=== PATIENT | female | born 1970 | race African-American/Black ===

== ENCOUNTER 2019-03-26 15:09 | Emergency (ER) | payer OTHER ==
[~2019-03-26] VITALS: Ht 157.5 cm; Wt 115.5 kg
[2019-03-26] MEDS ORDERED: AMLO10TA80 PO (15:45)
[2019-03-26 22:23] VITALS: BP 143/90
== END 2019-03-26 22:43 | disposition home or self-care (01) ==
LOC: ER 15:09
DX: F10.239 Alcohol dependence with withdrawal, unspecified (principal); Y90.9 Presence of alcohol in blood, level not specified; R00.0 Tachycardia, unspecified; I10 Essential (primary) hypertension
CPT/HCPCS: 99283

== ENCOUNTER 2019-09-09 04:24 | Inpatient (IN) | payer OTHER ==
[~2019-09-09] VITALS: Ht 154.9 cm; Wt 113.4 kg
[~2019-09-09 04:24] MED LIST: AMLO10TA80 PO
[2019-09-09] MEDS ORDERED: SODIUM CHLORIDE 0.9% 1000ML BAG (SEPSIS BOLUS) IV ONE (04:45)
[2019-09-09] MEDS ORDERED: MORPHINE SULFATE 4 MG/ML CPJ (NOT FOR IM USE) IV ONE (04:45)
[2019-09-09] MEDS ORDERED: FAMOTIDINE 20MG/2ML VIAL IV ONE (04:45)
[2019-09-09] MEDS ORDERED: ONDANSETRON HCL 4MG/2ML INJ IV ONE (04:45)
[2019-09-09] MEDS ORDERED: LABETALOL 5MG/ML SYR 20 MG/4 ML SYRINGE IV ONE (04:45)
[2019-09-09 05:06] LABS: HEMATOCRIT. 34.1 % (36.0-48.0); HEMOGLOBIN. 10.9 g/dL (12.0-16.0); MEAN CORPUSCULAR HEMOGLOBIN 23.3 pg (28.0-32.0); MEAN PLATELET VOLUME 8.8 fl (7.4-10.4); PLATELET 270 x1000/uL (130-400); RED BLOOD CELL COUNT 4.67 mill/uL (4.2-5.4); RED CELL DISTRIBUTION WIDTH 25.5 % (11.6-14.6)
[2019-09-09 05:12] LABS: INR 1.1; PROTHROMBIN TIME 11.1 sec (9.6-11.0)
[2019-09-09 05:37] LABS: CLARITY URINE CLOUDY (CLEAR); COLOR URINE RED (YELLOW); KETONES URINE 2+ (NEGATIVE); LEUKOCYTE ESTERASE URINE 2+ (NEGATIVE); NITRITE URINE NEGATIVE (NEGATIVE); OCCULT BLOOD URINE 3+ (NEGATIVE); PROTEIN URINE 2+ (NEGATIVE); SPECIFIC GRAVITY URINE 1.016 (1.005-1.030)
[2019-09-09 05:40] LABS: CHLORIDE 105 mEq/L (98-107)
[2019-09-09 05:45] LABS: ETHANOL BLOOD 91 mg/dL
[2019-09-09 06:01] LABS: *BARBITURATES SCREEN URINE NEGATIVE (NEGATIVE)
[2019-09-09 06:02] LABS: *AMPHETAMINES SCREEN URINE NEGATIVE (NEGATIVE); *BENZODIAZEPINES SCREEN URINE NEGATIVE (NEGATIVE); *COCAINE SCREEN URINE NEGATIVE (NEGATIVE); METHADONE URINE SCREEN NEGATIVE (NEGATIVE); OPIATES URINE SCREEN NEGATIVE (NEGATIVE); PHENCYCLIDINE URINE SCREEN NEGATIVE (NEGATIVE)
[2019-09-09 06:04] LABS: CANNABINOID URINE SCREEN NEGATIVE (NEGATIVE)
[2019-09-09] MEDS ORDERED: LORAZEPAM 1MG TABLET PO ONE (07:00)
[2019-09-09 07:07] LABS: PLATELET ESTIMATE NORMAL
[2019-09-09 08:30] VITALS: BP 168/94
[2019-09-09 08:49] VITALS: BP 168/94
[2019-09-09 09:18] VITALS: BP 168/94
[2019-09-09] MEDS ORDERED: ESCI20TA MT (10:02)
[2019-09-09] MEDS ORDERED: DIPHENHYDRAMINE 50MG/ML VIAL IV PRN (10:30)
[2019-09-09] MEDS ORDERED: ONDANSETRON HCL 4MG/2ML INJ IV PRN (10:30)
[2019-09-09] MEDS ORDERED: LORAZEPAM 2MG/ML CPJ IV PRN (10:30)
[2019-09-09] MEDS ORDERED: ACETAMINOPHEN 325MG TABLET PO PRN ×2 (10:30)
[2019-09-09 12:00] VITALS: BP 163/108
[2019-09-09] MEDS ORDERED: MVI, ADULT NO.1 10 ML, FOLIC ACID 1 MG, THIAMINE HCL 100 MG in SODIUM CHLORIDE 0.9% 1,0... IV NR ×4 (12:00)
[2019-09-09] MEDS ORDERED: POTASSIUM CHLORIDE INJ 40 MEQ in DEXT 5% WATER 250 ML IV NR (12:00)
[2019-09-09] MEDS: SODIUM CHLORIDE 0.9% 1,000 ML IV SCH ×2 (12:18→23:38)
[2019-09-09] MEDS: HYDRALAZINE 20MG/ML VIAL IV PRN (13:31)
[2019-09-09 16:00] VITALS: BP_SYST 148; BP_SYST 183; BP_DIAS 107; BP_DIAS 88
[2019-09-09] MEDS ORDERED: MAGNESIUM 2 G PREMIX 50 ML IV NR (19:00)
[2019-09-09 20:00] VITALS: BP 157/105
[2019-09-09] MEDS: FAMOTIDINE 20MG/2ML VIAL IV SCH (21:20)
[2019-09-09] MEDS: CLONIDINE 0.1MG TABLET PO PRN (21:20)
[2019-09-10] VITALS: BP 147/100
[2019-09-10 04:00] VITALS: BP 128/100
[2019-09-10] MEDS: CLONIDINE 0.1MG TABLET PO PRN ×2 (04:50→12:10)
[2019-09-10 06:59] LABS: CHLORIDE 103 mEq/L (98-107)
[2019-09-10 08:00] VITALS: BP 149/105
[2019-09-10] MEDS: HYDRALAZINE 20MG/ML VIAL IV PRN (09:19)
[2019-09-10] MEDS: FAMOTIDINE 20MG/2ML VIAL IV SCH (09:20)
[2019-09-10 12:00] VITALS: BP 135/104
[2019-09-10 12:08] LABS: BASOPHILS % 0.4 % (0.0-2.0); EOSINOPHILS % 1.2 % (0.0-5.0); HEMATOCRIT. 32.2 % (36.0-48.0); HEMOGLOBIN. 10.1 g/dL (12.0-16.0); LYMPHOCYTES % 22.2 % (20.0-50.0); MEAN CORPUSCULAR HEMOGLOBIN 23.5 pg (28.0-32.0); MEAN CORPUSCULAR VOLUME 74.6 fL (81.0-99.0); MEAN PLATELET VOLUME 8.8 fl (7.4-10.4); MONOCYTES % 5.9 % (2.0-8.0); NEUTROPHILS % 70.3 % (40.0-76.0); PLATELET 94 x1000/uL (130-400); RED BLOOD CELL COUNT 4.32 mill/uL (4.2-5.4); RED CELL DISTRIBUTION WIDTH 25.1 % (11.6-14.6)
[2019-09-10 12:48] LABS: PLATELET ESTIMATE DECREASED
[2019-09-10] MEDS ORDERED: POTASSIUM CHLORIDE 20MEQ TABLET SR PO NR (14:15)
[2019-09-10 16:00] VITALS: BP 133/75
[2019-09-10] MEDS ORDERED: POTASSIUM PHOS,M-BASIC-D-BASIC 20 MMOL in DEXT 5% WATER 243.3333 ML IV NR (16:00)
[2019-09-10] MEDS: OMEPRAZOLE 20MG CAPSULE EXTENDED RELEASE PO SCH ×2 (16:28→20:19)
[2019-09-10] MEDS: AMLODIPINE 10MG TABLET PO SCH (16:28)
[2019-09-10 20:00] VITALS: BP 105/56
[2019-09-11] VITALS: BP 106/70
[2019-09-11 04:00] VITALS: BP 117/77
[2019-09-11] MEDS: OMEPRAZOLE 20MG CAPSULE EXTENDED RELEASE PO SCH (05:47)
[2019-09-11 07:09] LABS: CHLORIDE 109 mEq/L (98-107)
[2019-09-11 07:21] LABS: PHOSPHORUS 2.8 mg/dL (2.5-4.9)
[2019-09-11 08:00] VITALS: BP 121/83
[2019-09-11] MEDS: AMLODIPINE 10MG TABLET PO SCH (08:26)
[2019-09-11] MEDS ORDERED: THIAMINE HCL 100MG TABLET PO NR (09:30)
[2019-09-11] MEDS ORDERED: POTASSIUM CHLORIDE 20MEQ TABLET SR PO NR (09:30)
[2019-09-11] MEDS: CLONIDINE 0.1MG TABLET PO PRN (11:23)
[2019-09-11 12:00] VITALS: BP 148/94
[2019-09-11 12:33] VITALS: BP 148/94
== END 2019-09-11 13:00 | disposition home or self-care (01) | DRG 392 ==
LOC: ER 04:24 → OBSVTOIN 06:31 → 5WST 06:31 → ENRESERV 07:29
PROVIDERS: ADMIT Internal Medicine; ATTEND Internal Medicine
DX: K29.00 Acute gastritis without bleeding (principal); E87.1 Hypo-osmolality and hyponatremia; E83.42 Hypomagnesemia; I10 Essential (primary) hypertension; E87.6 Hypokalemia; R74.0 Nonspecific elevation of levels of transaminase and lactic acid dehydrogenase [LDH]; F41.1 Generalized anxiety disorder; Z85.3 Personal history of malignant neoplasm of breast; Z82.49 Family history of ischemic heart disease and other diseases of the circulatory system; Z79.899 Other long term (current) drug therapy; Z90.11 Acquired absence of right breast and nipple; Z72.89 Other problems related to lifestyle
CPT/HCPCS: 36415; 80048; 80053; 80305; 80320; 81003; 83735; 84100; 85025; 93005; 96365; 99291; J0360; J2060; J2270; J2405; J3411; J3475; J3480; J3490; J7030; J7060; G0480

== ENCOUNTER 2020-06-29 23:38 | Emergency (ER) | payer OTHER ==
[~2020-06-29] VITALS: Ht 167.6 cm; Wt 75.0 kg
[~2020-06-29 23:38] MED LIST changes: +ESCI20TA MT
[2020-06-30] MEDS ORDERED: MORPHINE SULFATE 4 MG/ML CPJ (NOT FOR IM USE) IV STA (00:22)
[2020-06-30] MEDS ORDERED: FAMOTIDINE 20MG/2ML VIAL IV STA (00:22)
[2020-06-30] MEDS ORDERED: ONDANSETRON HCL 4MG/2ML INJ IV STA (00:22)
[2020-06-30] MEDS ORDERED: SODIUM CHLORIDE 0.9% 1,000 ML IV ONE (00:30)
[2020-06-30 02:14] LABS: BASOPHILS % 0.9 % (0.0-2.0); EOSINOPHILS % 0.1 % (0.0-5.0); HEMATOCRIT. 34.5 % (36.0-48.0); HEMOGLOBIN. 11.2 g/dL (12.0-16.0); LYMPHOCYTES % 18.8 % (20.0-50.0); MEAN CORPUSCULAR HEMOGLOBIN 29.9 pg (28.0-32.0); MEAN CORPUSCULAR VOLUME 92.1 fL (81.0-99.0); MEAN PLATELET VOLUME 8.8 fl (7.4-10.4); MONOCYTES % 7.7 % (2.0-8.0); NEUTROPHILS % 72.5 % (40.0-76.0); PLATELET 275 x1000/uL (130-400); RED BLOOD CELL COUNT 3.75 mill/uL (4.2-5.4)
[2020-06-30 02:18] LABS: CHLORIDE 107 mEq/L (98-107)
[2020-06-30 02:20] LABS: INR 1.1
[2020-06-30 02:24] LABS: HCG SCREEN NEGATIVE
[2020-06-30] MEDS ORDERED: POTASSIUM CHLORIDE 20MEQ TABLET SR PO SCH (04:45)
[2020-06-30 05:00] VITALS: BP 170/115
[2020-06-30] MEDS ORDERED: METO-293 MT (05:17)
[2020-06-30] MEDS ORDERED: ONDA4TAB5 MT (05:17)
== END 2020-06-30 06:12 | disposition home or self-care (01) ==
LOC: ER 23:38
DX: R10.13 Epigastric pain (principal); E87.6 Hypokalemia; I10 Essential (primary) hypertension; Z98.84 Bariatric surgery status; Z90.49 Acquired absence of other specified parts of digestive tract
CPT/HCPCS: 36415; 74176; 76705; 80053; 83605; 83690; 84484; 84703; 85025; 85610; 93005; 96361; 96374; 96375; 99285; J2270; J2405; J3490; J7030

== ENCOUNTER 2020-07-08 10:39 | Inpatient (IN) | payer OTHER ==
[~2020-07-08] VITALS: Ht 154.9 cm; Wt 95.4 kg
[~2020-07-08 10:39] MED LIST changes: +METO-293 MT; +ONDA4TAB5 MT
[2020-07-08] MEDS ORDERED: TRAMADOL 50MG TABLET PO ONE (12:00)
[2020-07-08] MEDS ORDERED: HYDROCODONE/ACETAMINOPHEN 10/325MG TABLET PO ONE (13:15)
[2020-07-08 14:27] LABS: BASOPHILS % 0.6 % (0.0-2.0); EOSINOPHILS % 0.4 % (0.0-5.0); HEMATOCRIT. 35.7 % (36.0-48.0); HEMOGLOBIN. 11.7 g/dL (12.0-16.0); LYMPHOCYTES % 51.8 % (20.0-50.0); MEAN CORPUSCULAR HEMOGLOBIN 30.1 pg (28.0-32.0); MEAN PLATELET VOLUME 8.6 fl (7.4-10.4); MONOCYTES % 8.7 % (2.0-8.0); NEUTROPHILS % 38.5 % (40.0-76.0); PLATELET 297 x1000/uL (130-400); RED BLOOD CELL COUNT 3.88 mill/uL (4.2-5.4); RED CELL DISTRIBUTION WIDTH 16.4 % (11.6-14.6)
[2020-07-08 14:30] LABS: CHLORIDE 106 mEq/L (98-107)
[2020-07-08 14:35] LABS: INR 1.1; PROTHROMBIN TIME 11.8 sec (9.6-11.0)
[2020-07-08 14:35] LABS: CLARITY URINE CLEAR (CLEAR); COLOR URINE YELLOW (YELLOW); KETONES URINE NEGATIVE (NEGATIVE); LEUKOCYTE ESTERASE URINE NEGATIVE (NEGATIVE); NITRITE URINE NEGATIVE (NEGATIVE); OCCULT BLOOD URINE NEGATIVE (NEGATIVE); PROTEIN URINE NEGATIVE (NEGATIVE); SPECIFIC GRAVITY URINE 1.008 (1.005-1.030); UROBILINOGEN URINE 0.2 E.U./dL (0.2-1.0)
[2020-07-08] MEDS ORDERED: SODIUM CHLORIDE 0.9% 2,000 ML IV NR (16:00)
[2020-07-08] MEDS ORDERED: ONDANSETRON HCL 4MG/2ML INJ IV NR (16:00)
[2020-07-08] MEDS ORDERED: LORAZEPAM 2MG/ML CPJ IM ONE (17:00)
[2020-07-08] MEDS ORDERED: LIDOCAINE HCL 1% 20ML VIAL (Pyxis) INJ INFIL ONE (17:15)
[2020-07-08] MEDS ORDERED: SODIUM CHLORIDE 0.9% 1,000 ML IV ONE (18:00)
[2020-07-08] MEDS ORDERED: ONDANSETRON HCL 4MG/2ML INJ IV ONE (22:30)
[2020-07-09 03:55] VITALS: BP 156/116
[2020-07-09 04:30] VITALS: BP 156/116
[2020-07-09] MEDS ORDERED: ONDANSETRON HCL 4MG/2ML INJ IV PRN (04:30)
[2020-07-09] MEDS ORDERED: ACETAMINOPHEN 325MG TABLET PO PRN (04:30)
[2020-07-09] MEDS: HYDROMORPHONE HCL/PF 2MG/ML CPJ IV PRN ×4 (05:17→18:47)
[2020-07-09] MEDS: DEXT 5%/0.45% NACL KCL 10MEQ/L 1,000 ML IV SCH ×2 (05:33→21:00)
[2020-07-09 08:00] VITALS: BP 187/133
[2020-07-09] MEDS: ENOXAPARIN 30MG/0.3ML SYR SUBCUT SCH ×2 (08:30→21:00)
[2020-07-09 12:00] VITALS: BP 168/120
[2020-07-09] MEDS: AMLODIPINE 10MG TABLET PO SCH (12:04)
[2020-07-09] MEDS: HYDRALAZINE HCL 10MG TABLET PO SCH ×2 (13:38→21:01)
[2020-07-09 16:00] VITALS: BP 154/114
[2020-07-09 20:00] VITALS: BP 139/95
[2020-07-09] MEDS: GABAPENTIN 400MG CAPSULE PO SCH (21:00)
[2020-07-10] VITALS (7 sets, daily range): BP systolic 135–179; BP diastolic 88–113
[2020-07-10] MEDS: HYDROMORPHONE HCL/PF 2MG/ML CPJ IV PRN ×4 (02:45→20:38)
[2020-07-10] MEDS: HYDRALAZINE HCL 10MG TABLET PO SCH ×3 (05:43→21:03)
[2020-07-10 06:08] LABS: CHLORIDE 105 mEq/L (98-107)
[2020-07-10 06:38] LABS: BASOPHILS % 0.4 % (0.0-2.0); EOSINOPHILS % 1.2 % (0.0-5.0); HEMATOCRIT. 31.1 % (36.0-48.0); HEMOGLOBIN. 9.7 g/dL (12.0-16.0); LYMPHOCYTES % 36.7 % (20.0-50.0); MEAN CORPUSCULAR HEMOGLOBIN 29.5 pg (28.0-32.0); MEAN CORPUSCULAR VOLUME 94.2 fL (81.0-99.0); MEAN PLATELET VOLUME 9.5 fl (7.4-10.4); NEUTROPHILS % 51.7 % (40.0-76.0); PLATELET 149 x1000/uL (130-400)
[2020-07-10] MEDS: DEXT 5%/0.45% NACL KCL 10MEQ/L 1,000 ML IV SCH (08:26)
[2020-07-10] MEDS: GABAPENTIN 400MG CAPSULE PO SCH ×4 (08:26→21:04)
[2020-07-10] MEDS: AMLODIPINE 10MG TABLET PO SCH (08:26)
[2020-07-10] MEDS: ENOXAPARIN 30MG/0.3ML SYR SUBCUT SCH ×2 (08:27→20:40)
[2020-07-10] MEDS ORDERED: LACTULOSE 20G/30ML UDC PO NR (10:30)
[2020-07-10] MEDS ORDERED: POTASSIUM CHLORIDE 20MEQ TABLET SR PO NR (10:30)
[2020-07-10] MEDS: DOCUSATE SODIUM 100MG CAPSULE PO SCH ×2 (11:02→16:34)
[2020-07-10] MEDS ORDERED: ACETAMINOPHEN 325MG TABLET PO NR (14:30)
[2020-07-10] MEDS ORDERED: ACETAMINOPHEN 325MG TABLET PO PRN (14:45)
[2020-07-11] VITALS: BP 148/85
[2020-07-11] MEDS: HYDROMORPHONE HCL/PF 2MG/ML CPJ IV PRN ×2 (02:03→08:15)
[2020-07-11 04:00] VITALS: BP 140/85
[2020-07-11] MEDS: HYDRALAZINE HCL 10MG TABLET PO SCH (05:00)
[2020-07-11] MEDS: GABAPENTIN 400MG CAPSULE PO SCH (05:01)
[2020-07-11 08:00] VITALS: BP 173/113
[2020-07-11] MEDS: AMLODIPINE 10MG TABLET PO SCH (08:13)
[2020-07-11] MEDS: DOCUSATE SODIUM 100MG CAPSULE PO SCH (08:13)
[2020-07-11] MEDS: ENOXAPARIN 30MG/0.3ML SYR SUBCUT SCH (08:40)
[2020-07-11 09:00] VITALS: BP 139/95
[2020-07-11 11:18] VITALS: BP 139/95
== END 2020-07-11 12:17 | disposition home or self-care (01) | DRG 641 ==
LOC: ER 10:39 → 8WST 22:43 → ENRESERV 07-09 02:19
PROVIDERS: ADMIT Hospitalist; ATTEND Hospitalist
PROC: 02H633Z Insertion of Infusion Device into Right Atrium, Percutaneous Approach (ICD-10-PCS; principal; 2020-07-08)
PROC: B548ZZA Ultrasonography of Superior Vena Cava, Guidance (ICD-10-PCS; 2020-07-08)
DX: E86.0 Dehydration (principal); E87.6 Hypokalemia; R10.13 Epigastric pain; I10 Essential (primary) hypertension; Z85.3 Personal history of malignant neoplasm of breast; Z79.899 Other long term (current) drug therapy
CPT/HCPCS: 36415; 71045; 76700; 80053; 81003; 84484; 85025; 93005; 99285; J1170; J1650; J2060; J2405; J3490; J7030

== ENCOUNTER 2020-07-13 05:39 | Emergency (ER) | payer OTHER ==
[~2020-07-13] VITALS: Ht 170.2 cm; Wt 109.0 kg
[2020-07-13] MEDS ORDERED: MAGNESIUM/ALUMINUM HYDROXIDE/SIMETHICONE 30ML UDC PO STA (06:08)
[2020-07-13] MEDS ORDERED: VISCOUS LIDOCAINE 2% 15 ML UDC PO STA (06:08)
[2020-07-13] MEDS ORDERED: SODIUM CHLORIDE 0.9% 1,000 ML IV ONE (06:15)
[2020-07-13] MEDS ORDERED: METOCLOPRAMIDE HCL 10MG/2ML VIAL IV ONE (06:15)
[2020-07-13] MEDS ORDERED: FAMOTIDINE 20MG/2ML VIAL IV ONE (06:15)
[2020-07-13 06:44] LABS: BASOPHILS % 0.5 % (0.0-2.0); CHLORIDE 109 mEq/L (98-107); EOSINOPHILS % 1.4 % (0.0-5.0); HEMATOCRIT. 33.8 % (36.0-48.0); HEMOGLOBIN. 10.6 g/dL (12.0-16.0); LYMPHOCYTES % 35.7 % (20.0-50.0); MEAN CORPUSCULAR HEMOGLOBIN 30.1 pg (28.0-32.0); MEAN CORPUSCULAR VOLUME 96.4 fL (81.0-99.0); MEAN PLATELET VOLUME 9.2 fl (7.4-10.4); MONOCYTES % 10.3 % (2.0-8.0); NEUTROPHILS % 52.1 % (40.0-76.0); PLATELET 171 x1000/uL (130-400); RED BLOOD CELL COUNT 3.51 mill/uL (4.2-5.4); RED CELL DISTRIBUTION WIDTH 16.4 % (11.6-14.6)
[2020-07-13 07:04] LABS: HCG SCREEN NEGATIVE
[2020-07-13] MEDS ORDERED: FAMO-135 MT (08:12)
[2020-07-13] MEDS ORDERED: ONDA4TAB5 MT (08:12)
[2020-07-13 08:29] VITALS: BP 125/88
== END 2020-07-13 09:40 | disposition home or self-care (01) ==
LOC: ER 05:48
DX: K29.20 Alcoholic gastritis without bleeding (principal); K70.10 Alcoholic hepatitis without ascites; D64.9 Anemia, unspecified; I10 Essential (primary) hypertension; G62.9 Polyneuropathy, unspecified; E86.0 Dehydration; F17.290 Nicotine dependence, other tobacco product, uncomplicated; Z90.49 Acquired absence of other specified parts of digestive tract; Z79.899 Other long term (current) drug therapy
CPT/HCPCS: 36415; 71045; 80053; 80320; 83690; 84703; 85025; 96361; 96374; 96375; 99284; 99406; J2765; J3490; J7030; G0480

== ENCOUNTER 2020-07-16 01:42 | Emergency (ER) | payer OTHER ==
[~2020-07-16] VITALS: Ht 162.6 cm; Wt 123.0 kg
[~2020-07-16 01:42] MED LIST changes: +FAMO-135 MT
[2020-07-16 03:44] LABS: EOSINOPHILS % 0.6 % (0.0-5.0); HEMATOCRIT. 34.4 % (36.0-48.0); HEMOGLOBIN. 10.8 g/dL (12.0-16.0); LYMPHOCYTES % 45.8 % (20.0-50.0); MEAN CORPUSCULAR HEMOGLOBIN 29.7 pg (28.0-32.0); MEAN CORPUSCULAR VOLUME 94.4 fL (81.0-99.0); MEAN PLATELET VOLUME 8.3 fl (7.4-10.4); MONOCYTES % 11.7 % (2.0-8.0); NEUTROPHILS % 40.9 % (40.0-76.0); PLATELET 318 x1000/uL (130-400); RED BLOOD CELL COUNT 3.64 mill/uL (4.2-5.4); RED CELL DISTRIBUTION WIDTH 16.7 % (11.6-14.6)
[2020-07-16] MEDS ORDERED: ACETAMINOPHEN 325MG TABLET PO ONE (03:45)
[2020-07-16] MEDS ORDERED: ONDANSETRON 4MG ODT PO ONE (03:45)
[2020-07-16 03:47] LABS: CHLORIDE 108 mEq/L (98-107)
[2020-07-16 04:00] VITALS: BP 126/90
[2020-07-16 04:12] LABS: ETHANOL BLOOD 292 mg/dL
[2020-07-18] MEDS ORDERED: MAG-55 MT (13:43)
[2020-07-18] MEDS ORDERED: PROT20 MT (13:44)
== END 2020-07-17 04:28 | disposition left against medical advice (07) ==
LOC: ER 01:42
DX: R10.9 Unspecified abdominal pain (principal); F10.129 Alcohol abuse with intoxication, unspecified; I10 Essential (primary) hypertension; Y90.8 Blood alcohol level of 240 mg/100 ml or more; Z85.9 Personal history of malignant neoplasm, unspecified; Z87.19 Personal history of other diseases of the digestive system
CPT/HCPCS: 36415; 80053; 80320; 83690; 85025; 93005; 99284; Q0162; G0480

== ENCOUNTER 2020-07-18 08:16 | Emergency (ER) | payer OTHER ==
[~2020-07-18] VITALS: Ht 167.6 cm; Wt 95.0 kg
[2020-07-18] MEDS ORDERED: FAMOTIDINE 20MG/2ML VIAL IV STA (08:51)
[2020-07-18] MEDS ORDERED: MORPHINE SULFATE 4 MG/ML CPJ (NOT FOR IM USE) IV STA (08:51)
[2020-07-18] MEDS ORDERED: ONDANSETRON HCL 4MG/2ML INJ IV STA (08:51)
[2020-07-18] MEDS ORDERED: SODIUM CHLORIDE 0.9% 1,000 ML IV ONE (09:00)
[2020-07-18 10:32] LABS: BASOPHILS % 0.2 % (0.0-2.0); EOSINOPHILS % 0.8 % (0.0-5.0); HEMATOCRIT. 36.9 % (36.0-48.0); HEMOGLOBIN. 11.4 g/dL (12.0-16.0); LYMPHOCYTES % 34.6 % (20.0-50.0); MEAN CORPUSCULAR HEMOGLOBIN 29.6 pg (28.0-32.0); MEAN CORPUSCULAR VOLUME 96.2 fL (81.0-99.0); MEAN PLATELET VOLUME 7.9 fl (7.4-10.4); MONOCYTES % 12.7 % (2.0-8.0); NEUTROPHILS % 51.7 % (40.0-76.0); PLATELET 356 x1000/uL (130-400); RED BLOOD CELL COUNT 3.83 mill/uL (4.2-5.4); RED CELL DISTRIBUTION WIDTH 17.3 % (11.6-14.6)
[2020-07-18 10:41] LABS: CHLORIDE 114 mEq/L (98-107); INR 1.1; PROTHROMBIN TIME 11.8 sec (9.6-11.0)
[2020-07-18] MEDS ORDERED: MAGNESIUM/ALUMINUM HYDROXIDE/SIMETHICONE 30ML UDC PO ONE (12:00)
[2020-07-18] MEDS ORDERED: GABAPENTIN 300MG CAPSULE PO ONE (12:00)
[2020-07-18] MEDS ORDERED: PANTOPRAZOLE SODIUM 40 MG/VIAL IV ONE (12:00)
[2020-07-18] MEDS ORDERED: PANTOPRAZOLE SODIUM 40 MG/VIAL IV SCH (12:30)
[2020-07-18] MEDS ORDERED: DEXT 5%/LACTATED RINGERS 1,000 ML IV NR (13:15)
[2020-07-18] MEDS ORDERED: MAG-55 MT (13:43)
[2020-07-18] MEDS ORDERED: PROT20 MT (13:44)
[2020-07-18 14:00] VITALS: BP 132/84
== END 2020-07-18 14:57 | disposition home or self-care (01) ==
LOC: ER 08:16
DX: R10.84 Generalized abdominal pain (principal); I10 Essential (primary) hypertension; Z85.9 Personal history of malignant neoplasm, unspecified; Z98.890 Other specified postprocedural states
CPT/HCPCS: 36415; 80053; 80320; 83605; 83690; 83880; 84484; 85025; 85610; 93005; 96361; 96365; 96375; 99285; C9113; J2270; J2405; J3490; J7030; G0480

== ENCOUNTER 2020-07-21 08:44 | Emergency (ER) | payer OTHER ==
[~2020-07-21] VITALS: Ht 162.6 cm; Wt 81.0 kg
[~2020-07-21 08:44] MED LIST changes: +MAG-55 MT; +PROT20 MT
[2020-07-21] MEDS ORDERED: ONDANSETRON HCL 4MG/2ML INJ IV STA (08:59)
[2020-07-21] MEDS ORDERED: FAMOTIDINE 20MG/2ML VIAL IV STA (08:59)
[2020-07-21] MEDS ORDERED: SODIUM CHLORIDE 0.9% 1,000 ML IV ONE (09:00)
[2020-07-21 09:34] LABS: BASOPHILS % 0.2 % (0.0-2.0); EOSINOPHILS % 1.1 % (0.0-5.0); HEMATOCRIT. 30.5 % (36.0-48.0); HEMOGLOBIN. 10.3 g/dL (12.0-16.0); LYMPHOCYTES % 51.1 % (20.0-50.0); MEAN CORPUSCULAR HEMOGLOBIN 30.9 pg (28.0-32.0); MEAN CORPUSCULAR VOLUME 91.7 fL (81.0-99.0); MONOCYTES % 9.2 % (2.0-8.0); NEUTROPHILS % 38.4 % (40.0-76.0); PLATELET 328 x1000/uL (130-400); RED BLOOD CELL COUNT 3.33 mill/uL (4.2-5.4); RED CELL DISTRIBUTION WIDTH 16.4 % (11.6-14.6)
[2020-07-21 09:41] LABS: CHLORIDE 107 mEq/L (98-107)
[2020-07-21 09:46] LABS: PROTHROMBIN TIME 11.1 sec (9.6-11.0)
[2020-07-21 09:59] LABS: ETHANOL BLOOD 342 mg/dL
[2020-07-21 10:00] LABS: HCG SCREEN NEGATIVE
[2020-07-21] MEDS ORDERED: POTASSIUM CHLORIDE 20MEQ TABLET SR PO ONE (10:00)
[2020-07-21 10:34] LABS: CLARITY URINE CLEAR (CLEAR); COLOR URINE YELLOW (YELLOW); KETONES URINE NEGATIVE (NEGATIVE); LEUKOCYTE ESTERASE URINE NEGATIVE (NEGATIVE); NITRITE URINE NEGATIVE (NEGATIVE); OCCULT BLOOD URINE NEGATIVE (NEGATIVE); PROTEIN URINE NEGATIVE (NEGATIVE); SPECIFIC GRAVITY URINE 1.004 (1.005-1.030); UROBILINOGEN URINE 0.2 E.U./dL (0.2-1.0)
[2020-07-21 11:01] LABS: *AMPHETAMINES SCREEN URINE NEGATIVE (NEGATIVE); *BARBITURATES SCREEN URINE NEGATIVE (NEGATIVE); *BENZODIAZEPINES SCREEN URINE NEGATIVE (NEGATIVE); *COCAINE SCREEN URINE NEGATIVE (NEGATIVE)
[2020-07-21 11:02] LABS: CANNABINOID URINE SCREEN NEGATIVE (NEGATIVE); METHADONE URINE SCREEN NEGATIVE (NEGATIVE); OPIATES URINE SCREEN NEGATIVE (NEGATIVE); PHENCYCLIDINE URINE SCREEN NEGATIVE (NEGATIVE)
[2020-07-21] MEDS ORDERED: ACETAMINOPHEN 325MG TABLET PO ONE (11:30)
[2020-07-21] MEDS ORDERED: ONDA4TAB5 MT (11:46)
[2020-07-21] MEDS ORDERED: OMEP20CA14 MT (11:47)
[2020-07-21 12:35] VITALS: BP 150/90
== END 2020-07-21 12:34 | disposition home or self-care (01) ==
LOC: ER 08:50
DX: T51.0X1A Toxic effect of ethanol, accidental (unintentional), initial encounter (principal); G92 Toxic encephalopathy; E87.6 Hypokalemia; E87.8 Other disorders of electrolyte and fluid balance, not elsewhere classified; R53.1 Weakness; I10 Essential (primary) hypertension; Y90.8 Blood alcohol level of 240 mg/100 ml or more; Z85.3 Personal history of malignant neoplasm of breast; Z98.890 Other specified postprocedural states; Y92.018 Other place in single-family (private) house as the place of occurrence of the external cause
CPT/HCPCS: 36415; 70450; 71045; 80053; 80305; 80320; 81003; 81025; 83690; 84703; 85025; 85610; 93005; 96361; 96374; 96375; 99285; J2405; J3490; J7030; G0480

== ENCOUNTER 2020-07-24 08:14 | Emergency (ER) | payer OTHER ==
[~2020-07-24] VITALS: Ht 154.9 cm; Wt 97.5 kg
[~2020-07-24 08:14] MED LIST changes: +OMEP20CA14 MT
[2020-07-24] MEDS ORDERED: MAGNESIUM/ALUMINUM HYDROXIDE/SIMETHICONE 30ML UDC PO STA (08:31)
[2020-07-24] MEDS ORDERED: DICYCLOMINE 10 MG/5 ML ORAL SYR PO STA (08:31)
[2020-07-24 09:15] LABS: BASOPHILS % 0.3 % (0.0-2.0); EOSINOPHILS % 0.8 % (0.0-5.0); HEMATOCRIT. 31.9 % (36.0-48.0); HEMOGLOBIN. 10.3 g/dL (12.0-16.0); LYMPHOCYTES % 32.7 % (20.0-50.0); MEAN CORPUSCULAR HEMOGLOBIN 30.1 pg (28.0-32.0); MEAN CORPUSCULAR VOLUME 92.5 fL (81.0-99.0); MEAN PLATELET VOLUME 8.4 fl (7.4-10.4); NEUTROPHILS % 58.2 % (40.0-76.0); PLATELET 250 x1000/uL (130-400); RED BLOOD CELL COUNT 3.44 mill/uL (4.2-5.4); RED CELL DISTRIBUTION WIDTH 16.7 % (11.6-14.6)
[2020-07-24 09:19] LABS: CHLORIDE 109 mEq/L (98-107)
[2020-07-24 09:29] LABS: CLARITY URINE CLEAR (CLEAR); COLOR URINE YELLOW (YELLOW); KETONES URINE NEGATIVE (NEGATIVE); LEUKOCYTE ESTERASE URINE NEGATIVE (NEGATIVE); NITRITE URINE NEGATIVE (NEGATIVE); OCCULT BLOOD URINE NEGATIVE (NEGATIVE); PH URINE 5.5 (4.5-8.0); PROTEIN URINE NEGATIVE (NEGATIVE); SPECIFIC GRAVITY URINE 1.004 (1.005-1.030); UROBILINOGEN URINE 0.2 E.U./dL (0.2-1.0)
[2020-07-24 09:31] LABS: HCG SCREEN NEGATIVE
[2020-07-24 09:43] LABS: *AMPHETAMINES SCREEN URINE NEGATIVE (NEGATIVE); *BARBITURATES SCREEN URINE NEGATIVE (NEGATIVE)
[2020-07-24 09:44] LABS: ETHANOL BLOOD 335 mg/dL
[2020-07-24 09:45] LABS: *BENZODIAZEPINES SCREEN URINE NEGATIVE (NEGATIVE); *COCAINE SCREEN URINE NEGATIVE (NEGATIVE); METHADONE URINE SCREEN NEGATIVE (NEGATIVE); OPIATES URINE SCREEN NEGATIVE (NEGATIVE); PHENCYCLIDINE URINE SCREEN NEGATIVE (NEGATIVE)
[2020-07-24 09:46] LABS: CANNABINOID URINE SCREEN NEGATIVE (NEGATIVE)
[2020-07-24] MEDS ORDERED: POTASSIUM CHLORIDE 20MEQ TABLET SR PO ONE (11:15)
[2020-07-24 12:43] VITALS: BP 106/72
== END 2020-07-24 12:44 | disposition home or self-care (01) ==
LOC: ER 08:14
DX: R10.33 Periumbilical pain (principal); T51.0X1A Toxic effect of ethanol, accidental (unintentional), initial encounter; E87.6 Hypokalemia; I10 Essential (primary) hypertension; Y90.8 Blood alcohol level of 240 mg/100 ml or more; Z85.9 Personal history of malignant neoplasm, unspecified; Y92.018 Other place in single-family (private) house as the place of occurrence of the external cause
CPT/HCPCS: 36415; 74176; 80053; 80305; 80320; 81003; 81025; 84703; 85025; 93005; 99285; G0480